=== PATIENT | female | born 1975 | race Caucasian/White ===

== ENCOUNTER 2018-01-09 10:43 | Day surgery (SDC) | payer OTHER, BC ==
[2018-01-09] MEDS: NS 1,000 ML IV (10:58)
[2018-01-09 11:14] LABS: BEDSIDE GLUCOSE 192 MG/DL (70-105)
[2018-01-09] MEDS ORDERED: LIDOCAINE 2% INJ 100 MG/5 ML SDV (FOR ANES.) As Ordered (12:18)
[2018-01-09] MEDS ORDERED: PROPOFOL 200 MG/20 ML VIAL As Ordered (12:18)
== END 2018-01-09 14:27 | disposition home or self-care (01) ==
LOC: M OPP 10:43
DX: D50.9 Iron deficiency anemia, unspecified (principal); K22.8 Other specified diseases of esophagus; K29.70 Gastritis, unspecified, without bleeding; E10.9 Type 1 diabetes mellitus without complications; R06.83 Snoring; E66.9 Obesity, unspecified; Z88.8 Allergy status to other drugs, medicaments and biological substances; Z79.899 Other long term (current) drug therapy; Z83.71 Family history of colonic polyps
CPT/HCPCS: 45378